=== PATIENT | male | born 1960 | race Caucasian/White ===

== ENCOUNTER → 2018-11-02 | Outpatient (CLI) | payer MEDICARE ==
[~2018-11-02] MED LIST: ACYC-50 PO; CEPH500T7 PO; KET10 PO; LOR5/325 PO; MAGIC
--- NOTE | 2018-11-02 14:24 | RADIOLOGY IMAGING REPORT ---
FACILITY: [facility] - [place] PATIENT NAME: Harrison Blanco : 1960 MR: [id number] V: [id number] EXAM DATE: ORDERING PHYSICIAN: ANJELICA OSUNA TECHNOLOGIST: Location: [facility] [place] Patient: Harrison Blanco : 1960 Visit/Account:[id number] Date of Sevice: 11/02/2018 Technique: SHOULDER MIN 2 VIEWS RIGHT HISTORY: Right shoulder pain Comparison studies: None FINDINGS: There is no acute fracture. The alignment of the right shoulder is preserved. Soft tissue s are unremarkable. IMPRESSION: 1. No acute osseous process. Report Dictated By: Deangelo Lopez DO at 11/02/2018 2:13 PM Report E-Signed By: Deangelo Lopez DO at 11/02/2018 2:14 PM [id number]
== END ==
LOC: RAD 11:37
PROVIDERS: ATTEND Nurse Practitioner Family
DX: M25.551 Pain in right hip (principal)